=== PATIENT | female | born 1960 | race Caucasian/White ===

== ENCOUNTER 2016-10-20 21:06 | Emergency (ER) | payer OTHER ==
[~2016-10-20] VITALS: Ht 162.6 cm; Wt 54.4 kg
--- OUTSIDE RECORDS SUMMARY | 2016-10-20 21:13 | XMS REPORT | Continuity of Care Document ---
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 Ot V76.12 02/17/2015 LESLIE OWENS DROP HAMMER PILE DRIVER OPERATOR Ot 733.90 02/17/2015 LESLIE OWENS DROP HAMMER PILE DRIVER OPERATOR Ot V76.12 02/17/2015 LESLIE OWENS DROP HAMMER PILE DRIVER OPERATOR Ot 733.90 02/17/2015 LESLIE OWENS DROP HAMMER PILE DRIVER OPERATOR Ot V76.12 10/26/2015 LESLIE OWENS APRN Ot 733.90 10/26/2015 LESLIE OWENS DROP HAMMER PILE DRIVER OPERATOR Ot V76.12 10/31/2015 MANJINDER KATZ, SHARAN D Ot M54.2 10/31/2015 MANJINDER KATZ, SHARAN D Ot M54.6 10/31/2015 MANJINDER KATZ, SHARAN D Ot M54.2 10/31/2015 MANJINDER KATZ, SHARAN D Ot M54.6 10/31/2015 MANJINDER KATZ, SHARAN D Ot M54.2 10/31/2015 MANJINDER KATZ, SHARAN D Ot M54.6 10/31/2015 MANJINDER KATZ, SHARAN D Ot M54.2 10/31/2015 MANJINDER KATZ, SHARAN D Ot M54.6 10/31/2015 MANJINDER KATZ, SHARAN D Ot M54.2 10/31/2015 MANJINDER KATZ, SHARAN D Ot M54.6 10/31/2015 MANJINDER KATZ, SHARAN D Ot M54.2 10/31/2015 MANJINDER KATZ, SHARAN D Ot M54.6 11/09/2015 MANJINDER KATZ, SHARAN D Ot M54.2 11/09/2015 MANJINDER KATZ, SHARAN D Ot M54.6 01/19/2016 LESLIE OWENS APRN Ot 733.90 BONE CARTILAGE DIS NOS 01/19/2016 LESLIE OWENS APRN Ot V76.12 OTH SCREEN MAMMO-MALIGN NEOPLASM OF ANJALI 01/19/2016 SHARAN DUNBAR MD Ot M54.2 CERVICALGIA 01/19/2016 SHARAN DUNBAR MD Ot M54.6 PAIN IN THORACIC SPINE 01/19/2016 LESLIE OWENS DROP HAMMER PILE DRIVER OPERATOR Ot 733.90 BONE CARTILAGE DIS NOS 01/19/2016 LESLIE OWENS APRN Ot V76.12 OTH SCREEN MAMMO-MALIGN NEOPLASM OF ANJALI 01/19/2016 SHARAN DUNBAR MD Ot M54.2 CERVICALGIA 01/19/2016 SHARAN DUNBAR MD Ot M54.6 PAIN IN THORACIC SPINE Procedures Results Encounters ACCT No. Visit Date/Time Discharge Status Pt. Type Provider Facility Loc./Unit Complaint [id number] 01/06/2015 10:07:00 2014 23:59:59 CLS Outpatient LESLIE OWENS APRN [facility] RAD [id number] 10/20/2016 21:09:00 ACT Emergency DILIP TERESA DO [facility] ER FALL [id number] 10/26/2015 16:38:00 ACT Outpatient SHARAN DUNBAR MD [facility] RAD
--- NOTE | 2016-10-20 21:34 | ED Back Pain ---
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) Severity: Severe Pain/Injury Location: Back, Lower Extremity (right hip), Upper Extremity (left elbow), Pelvis (sacrum/coccyx) Method of Injury: Fall Modifying Factors: Worse With Movement, Improves With Rest Associated Symptoms: lower back pain Allergies and Home Medications Allergies Coded Allergies: No Known Drug Allergies (Unverified , 10/20/16) Home Medications Hydrocodone/Acetaminophen 1 Each Tablet, 1 EACH PO Q6H, #24 Prescribed by: DILPI TERESA on 10/20/16 6834 Constitutional: see HPI Musculoskeletal: see HPI, back pain, other (right hip and left elbow pain) All Other Systems Reviewed Negative Unless Noted: Yes (Negative excepted noted.) Past Pquvvji-Bgomzx-Zymhch Hx Patient Social History Recent Foreign Travel: No Contact w/Someone Who Travel: No Physical Exam Vital Signs Capillary Refill : General Appearance: WD/WN, Moderate Distress Cardiovascular: Regular Rate, Rhythm Respiratory: No Respiratory Distress Back: Decreased Range of Motion (lumbar spine), Muscle Spasm, Other (tender to palpation over sacrum and coccyx) Extremity: Other (tender to palpation over right greater trochanter as well as the patient's left elbow although patient's ROM is pretty good in both and there is no obvious deformity noted in either extremity.) Neurologic/Psychiatric: Alert, Oriented x3, No Motor/Sensory Deficits Skin: Warm/Dry Progress/Results/Core Measures Results/Orders My Orders Orders - DILIP TERESA DO Fentanyl Injection (Sublimaze Injection (10/20/16 21:45) Ct Lumbar Spine Wo (10/20/16 21:45) Ct Pelvis Wo (10/20/16 21:45) Elbow, Left, 3 Views (10/20/16 ) Dexamethasone Pf Injection (Decadron Pf (10/20/16 22:45) Oxycodone/Apap 5/325mg Tablet (Percocet (10/20/16 22:45) Sling (10/20/16 22:45) Im/Sub-Q Injection Non-Ab Ed (10/20/16 ) Medications Given in ED Diagnostic Imaging Diagonstic Imaging: Xray, CT Plain Films/CT/US/NM/MRI: elbow, pelvis, other (L spine; all films were negative for anything acute) Departure Impression Impression: Primary Impression: Fall Additional Impression: Contusion sacrum/coccyx/ elbow Disposition: 01 HOME, SELF-CARE Condition: Stable Departure-Patient Inst. Decision time for Depature: 22:43 Referrals: SHARAN DUNBAR MD (PCP/Family) Primary Care Physician Patient Instructions: Contusion (DC), Low Back Pain (DC) Add. Discharge Instructions: All discharge instructions reviewed with patient and/or family. Voiced understanding. CONTINUE YOUR MOBIC DIRECTED. IT WILL HELP WITH YOUR PAIN/ SWELLING. Scripts Hydrocodone/Acetaminophen (Hydrocodon-Acetaminophn 10-325) 1 Each Tablet 1 EACH PO Q6H for Pain, #24 TAB Prov: DILIP TERESA DO 10/20/16 DILIP TERESA DO Oct 20, 2016 21:34
[2016-10-20] MEDS ORDERED: fentaNYL INJECTION 100 MCG/2 ML AMP IM ONE (21:45)
[2016-10-20] MEDS ORDERED: HYDR-3820 PO (22:44)
[2016-10-20] MEDS ORDERED: oxyCODONE/APAP 5/325MG (PERCOCET 5) TABLET PO ONE (22:45)
[2016-10-20] MEDS ORDERED: DEXAMETHASONE PF 10 MG/ML (DECADRON) VIAL IM ONE (22:45)
[2016-10-20 23:12] VITALS: BP 110/54
--- NOTE | 2016-10-21 07:04 | Diagnostic Imaging Report ---
PROCEDURE: CT lumbar spine without contrast. TECHNIQUE: Multiple contiguous axial images were obtained through the lumbar spine without the use of intravenous contrast. Sagittal and coronal reformations were then performed. INDICATION: Back pain after a fall. FINDINGS: The alignment of the lumbar spine is normal. The vertebral body heights are well-maintained. There is no spondylolysis or spondylolisthesis. No fractures are identified. There is no bony encroachment upon the spinal canal. There are few small areas of decreased attenuation in the liver which are too small to characterize by CT. Remainder of soft tissue structures are unremarkable. IMPRESSION: Unremarkable CT lumbar spine Low attenuating lesions in the liver likely cysts, however, these are too small to accurately characterize by CT. Dictated by: Dictated on workstation # [id number]
--- NOTE | 2016-10-21 07:05 | Diagnostic Imaging Report ---
PROCEDURE: CT pelvis without contrast. TECHNIQUE: Multiple contiguous axial images were obtained through the pelvis without the use of intravenous contrast. Sagittal and coronal reformations were performed. INDICATION: Pain after a fall. FINDINGS: The bony pelvis is intact. Lower lumbar spine is unremarkable. The alignment of both hips is normal. Thre is no fracture or dislocation. Intrapelvic soft tissue structures are unremarkable. IMPRESSION: Unremarkable CT pelvis Dictated by: Dictated on workstation # [id number]
--- NOTE | 2016-10-21 07:21 | Diagnostic Imaging Report ---
EXAMINATION: Left elbow, 3 views. COMPARISON: None. HISTORY: 55-year-old female, fall. Left elbow pain. FINDINGS: There is no identified elbow joint effusion. There is no identified acute fracture or dislocation. Joint spaces are well-preserved. There is no radiopaque foreign body. There is no prominent focal soft tissue swelling. IMPRESSION: Unremarkable radiographs of the left elbow. Dictated by: Dictated on workstation # [id number]
== END 2016-10-20 23:12 | disposition home or self-care (01) ==
LOC: EDUNIT# 21:06 → ER 21:09
DX: S30.0XXA Contusion of lower back and pelvis, initial encounter (principal); S50.02XA Contusion of left elbow, initial encounter; K76.9 Liver disease, unspecified; W19.XXXA Unspecified fall, initial encounter; Y99.8 Other external cause status
CPT/HCPCS: 72131; 72192; 73080; 96372; 99281